=== PATIENT | female | born 1980 | race Caucasian/White ===

== ENCOUNTER 2019-03-14 21:59 | Emergency (ER) | payer MEDICAID ==
[~2019-03-14] VITALS: Ht 157.5 cm; Wt 72.6 kg
[2019-03-14 22:06] VITALS: BP 125/65
--- NOTE | 2019-03-14 22:23 | NUR ---
PT TO ED WITH C/O GENERALIZED RASH X 3 DAYS. PT DENIES ANY NEW SOAPS, BODY WASHES OR DETERGENTS. DENIES CP/SOB. NO DISTRESS NOTED. MILD RASH NOTED TO FACE. PT PLACED INTO BWED, PENDING MD FINNEGAN.
[2019-03-14 22:45] VITALS: BP 125/65
== END 2019-03-14 22:45 | disposition home or self-care (01) ==
LOC: MED 21:59
DX: L50.0 Allergic urticaria (principal)
CPT/HCPCS: 99283